=== PATIENT | male | born 1970 | race Caucasian/White ===

== ENCOUNTER 2021-12-21 13:10 | Emergency (ER) | payer MEDICARE, MEDICAID ==
[~2021-12-21] VITALS: Ht 185.4 cm; Wt 127.0 kg
[2021-12-21 13:44] LABS: BASOPHILS % (AUTO) 1 % (0-10); EOSINOPHILS # (AUTO) 0.1 10^3/uL (0.0-0.3); EOSINOPHILS % (AUTO) 1 % (0-10); HEMATOCRIT 47 % (40-54); HEMOGLOBIN 16.3 g/dL (13.3-17.7); LYMPHOCYTES # (AUTO) 2.2 10^3/uL (1.0-4.0); LYMPHOCYTES % (AUTO) 37 % (12-44); MEAN CORPUSCULAR HEMOGLOBIN 34 pg (25-34); MEAN CORPUSCULAR HGB CONC 35 g/dL (32-36); MEAN CORPUSCULAR VOLUME 97 fL (80-99); MEAN PLATELET VOLUME 9.1 fL (9.0-12.2); MONOCYTES # (AUTO) 0.6 10^3/uL (0.0-1.0); MONOCYTES % (AUTO) 10 % (0-12); NEUTROPHILS % (AUTO) 52 % (42-75); PLATELET COUNT 211 10^3/uL (130-400); WHITE BLOOD COUNT 5.9 10^3/uL (4.3-11.0)
[2021-12-21 13:55] LABS: ALBUMIN 4.1 GM/DL (3.2-4.5); POTASSIUM 3.8 MMOL/L (3.6-5.0)
--- NOTE | 2021-12-21 13:56 | ED General ---
General Chief Complaint: Altered Mental Status Stated Complaint: AMS Nursing Triage Note: pt to room by vishnu moore ems. ems reports that the pt family reports increasing AMS over the last few days. pt was seen by a new neurologist 3 days ago and started on keppra per ems reports. ems reports pt has been taking keppra along with his dilantin and other home meds. pt reports feeling more "tired and out of it" since beginning the keppra 3 days ago. pt does have a hx of stroke with minor left sided deficits. ems reports pt walked to their cot on their arrival. pt is A&Ox4 on arrival, speech clear Source of Information: Patient, EMS Exam Limitations: No Limitations History of Present Illness Date Seen by Provider: December 21, 2021 Time Seen by Provider: 13:23 Allergies and Home Medications Allergies Coded Allergies: Meperidine (Unverified Allergy, Unknown, 06/21/09) Physical Exam Vital Signs Vital Signs - First Documented 12/21/21 13:20 Temp 35.8 Pulse 66 Resp 22 B/P (MAP) 121/75 (90) Pulse Ox 95 Capillary Refill : Height, Weight, BMI Height: '" Weight: lbs. oz. kg; 36.00 BMI Method: Progress/Results/Core Measures Suspected Sepsis SIRS Temperature: Pulse: 66 Respiratory Rate: 22 Laboratory Tests 12/21/21 13:33: White Blood Count 5.9 Blood Pressure 121 /75 Mean: 90 Laboratory Tests 12/21/21 13:33: Creatinine 0.78, Platelet Count 211, Total Bilirubin 0.3 Results/Orders Lab Results Laboratory Tests Test 12/21/21 13:33 12/21/21 14:22 Range/Units White Blood Count 5.9 4.3-11.0 10^3/uL Red Blood Count 4.81 4.30-5.52 10^6/uL Hemoglobin 16.3 13.3-17.7 g/dL Hematocrit 47 40-54 % Mean Corpuscular Volume 97 80-99 fL Mean Corpuscular Hemoglobin 34 25-34 pg Mean Corpuscular Hemoglobin Concent 35 32-36 g/dL Red Cell Distribution Width 13.0 10.0-14.5 % Platelet Count 211 130-400 10^3/uL Mean Platelet Volume 9.1 9.0-12.2 fL Immature Granulocyte % (Auto) 0 % Neutrophils (%) (Auto) 52 42-75 % Lymphocytes (%) (Auto) 37 12-44 % Monocytes (%) (Auto) 10 0-12 % Eosinophils (%) (Auto) 1 0-10 % Basophils (%) (Auto) 1 0-10 % Neutrophils # (Auto) 3.0 1.8-7.8 10^3/uL Lymphocytes # (Auto) 2.2 1.0-4.0 10^3/uL Monocytes # (Auto) 0.6 0.0-1.0 10^3/uL Eosinophils # (Auto) 0.1 0.0-0.3 10^3/uL Basophils # (Auto) 0.0 0.0-0.1 10^3/uL Immature Granulocyte # (Auto) 0.0 0.0-0.1 10^3/uL Sodium Level 141 135-145 MMOL/L Potassium Level 3.8 3.6-5.0 MMOL/L Chloride Level 103 98-107 MMOL/L Carbon Dioxide Level 27 21-32 MMOL/L Anion Gap 11 5-14 MMOL/L Blood Urea Nitrogen 14 7-18 MG/DL Creatinine 0.78 0.60-1.30 MG/DL Estimat Glomerular Filtration Rate 109 BUN/Creatinine Ratio 18 Glucose Level 91 70-105 MG/DL Calcium Level 9.3 8.5-10.1 MG/DL Corrected Calcium 9.2 8.5-10.1 MG/DL Total Bilirubin 0.3 0.1-1.0 MG/DL Aspartate Amino Transf (AST/SGOT) 17 5-34 U/L Alanine Aminotransferase (ALT/SGPT) 18 0-55 U/L Alkaline Phosphatase 99 40-136 U/L Total Protein 6.6 6.4-8.2 GM/DL Albumin 4.1 3.2-4.5 GM/DL My Orders Orders - BEATRICE MANN [employer] Cbc With Automated Diff (12/21/21 13:37) Comprehensive Metabolic Panel (12/21/21 13:37) Ua Culture If Indicated (12/21/21 13:37) Chest 1 View, Ap/Pa Only (12/21/21 13:37) Ekg Tracing (12/21/21 13:37) Vital Signs/I&O 12/21/21 13:20 Temp 35.8 Pulse 66 Resp 22 B/P (MAP) 121/75 (90) Pulse Ox 95 Capillary Refill : Blood Pressure Mean: 90 Departure Impression Primary Impression: Adverse drug effect Disposition: 01 HOME, SELF-CARE Condition: Stable Departure-Patient Inst. Decision time for Depature: 14:31 Referrals: NO,LOCAL PHYSICIAN (PCP/Family) Primary Care Physician Patient Instructions: Adverse Drug Reactions, Adult Add. Discharge Instructions: Plan: 1. Keep follow-up with your neurologist as previously scheduled. 2. As directed per your neurology provider you will decrease your Dilantin from 600 mg at bedtime to 300 mg at bedtime and continue your current dose of Keppra. 3. Return to the ER for any new, concerning, worsening symptoms. 4. Stop using your THC pen. All discharge instructions reviewed with patient and/or family. Voiced understanding. BEATRICE MANN [employer] December 21, 2021 13:56
[2021-12-21 13:57] LABS: CALCIUM 9.3 MG/DL (8.5-10.1)
[2021-12-21 13:58] LABS: TOTAL PROTEIN 6.6 GM/DL (6.4-8.2)
[2021-12-21 14:00] LABS: BILIRUBIN,TOTAL 0.3 MG/DL (0.1-1.0)
[2021-12-21 14:02] LABS: CREATININE SERUM 0.78 MG/DL (0.60-1.30)
--- NOTE | 2021-12-21 14:20 | Diagnostic Imaging Report ---
INDICATION: Weakness. Frontal chest obtained at 2:02 p.m. There is no prior study for comparison. FINDINGS: The patient has had previous sternotomy. The heart is normal in size. Mediastinal silhouette is unremarkable. The lungs are clear. There is no pneumothorax or pleural fluid. IMPRESSION: Negative chest. Dictated by: Dictated on workstation # [id number]
[2021-12-21 14:29] LABS: BILIRUBIN,URINE NEGATIVE (NEGATIVE); CLARITY,URINE CLEAR; COLOR,URINE YELLOW; GLUCOSE, URINE (UA) NEGATIVE (NEGATIVE); KETONES,URINE NEGATIVE (NEGATIVE); LEUKOCYTE ESTERASE ,URINE NEGATIVE (NEGATIVE); NITRITE,URINE NEGATIVE (NEGATIVE); PH,URINE 5.5 (5-9); PROTEIN,URINE NEGATIVE (NEGATIVE)
[2021-12-21 14:39] LABS: BACTERIA,URINE NEGATIVE /HPF
[2021-12-21 15:03] VITALS: BP 116/82
== END 2021-12-21 15:06 | disposition home or self-care (01) ==
LOC: EDUNIT# 13:10 → ER 13:11
DX: R41.82 Altered mental status, unspecified (principal); T42.6X5A Adverse effect of other antiepileptic and sedative-hypnotic drugs, initial encounter; Z86.73 Personal history of transient ischemic attack (TIA), and cerebral infarction without residual deficits
CPT/HCPCS: 36415; 71045; 80053; 81000; 85025; 93005